=== PATIENT | male | born 1965 | race Caucasian/White ===

== ENCOUNTER 2019-03-25 10:36 | Outpatient (CLI) | END 2019-03-25 10:37 | disposition home or self-care (01) | LOC: LAB 10:36 | PROVIDERS: ATTEND Family Medicine | DX: E11.9 Type 2 diabetes mellitus without complications (principal); I10 Essential (primary) hypertension; M08.20 Juvenile rheumatoid arthritis with systemic onset, unspecified site; E78.00 Pure hypercholesterolemia, unspecified | CPT/HCPCS: 36415; 80053; 80061; 83036 ==